=== PATIENT | male | born 1965 | race Caucasian/White ===

== ENCOUNTER 2016-09-03 05:44 | Day surgery (SDC) | payer OTHER ==
[~2016-09-03] VITALS: Ht 182.9 cm; Wt 90.7 kg
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
[~2016-09-03 05:44] MED LIST: ALEVE220 MG PO; LEVOTHYROXINE0.2 M1 PO
[2016-09-03 09:52] VITALS: BP 133/94
[2016-09-03 13:04] VITALS: BP 133/94
== END 2016-09-03 13:55 | disposition home or self-care (01) ==
LOC: OR 05:44 → TBA 05:44 → OR 08:20
DX: K40.20 Bilateral inguinal hernia, without obstruction or gangrene, not specified as recurrent (principal); K41.90 Unilateral femoral hernia, without obstruction or gangrene, not specified as recurrent; K43.0 Incisional hernia with obstruction, without gangrene; E03.9 Hypothyroidism, unspecified; Z98.890 Other specified postprocedural states
CPT/HCPCS: 50010; 50101; 50249; 50411; 50555; 50558; 50848; 50944; 51824; 52265; 52266; 54022; 54118; 54169; 56462; 56525; 56526; 62110; 62900; 70005